=== PATIENT | male | born 1990 | race Caucasian/White ===

== ENCOUNTER 2019-01-26 08:15 | Day surgery (SDC) | payer OTHER ==
[~2019-01-26] VITALS: Ht 292.1 cm; Wt 63.5 kg
[2019-01-26 09:03] VITALS: BP 118/69; Ht 292.1 cm; Wt 63.5 kg
--- NOTE | 2019-01-26 12:50 | NUR ---
PATIENT AND [facility] GUARDS NOTIFIED THAT DR BOUCHER HAS BEEN DELAYED DUE TO EMERGENCY SURGERIES. [facility] GUARDS ELECT TO CANCEL TODAY'S SURGERY AND RESCHEDULE DUE TO THE DELAY. PIV DC'D WITH TIP INTACT. MINE AT DR BOUCHER'S OFFICE NOTIFIED OF NEED TO RESCHEDULE, MINE STATES SHE WILL CALL [facility] TO RESCHEDULE. PATIENT DISCHARGED IN [facility]
== END 2019-01-26 12:50 ==
LOC: D.OPS 08:15
PROVIDERS: ATTEND Surgery
DX: K40.90 Unilateral inguinal hernia, without obstruction or gangrene, not specified as recurrent (principal); Z53.9 Procedure and treatment not carried out, unspecified reason; Z01.812 Encounter for preprocedural laboratory examination